=== PATIENT | female | born 1965 | race Caucasian/White ===

== ENCOUNTER 2016-03-14 05:35 | Observation (INO) | payer OTHER ==
[2016-03-14] MEDS ORDERED: Sodium Chloride 0.9% 1000 ML 1,000 ML IV STA (06:04)
[2016-03-14] MEDS ORDERED: Zofran 4 MG/2 ML VIAL IV ONE ×2 (06:04→15:19)
[2016-03-14] MEDS ORDERED: PROTONIX 40 MG IV IV ONE ×2 (06:04→06:09)
[2016-03-14] MEDS ORDERED: Sodium Chloride 0.9% 1000 ML 1,000 ML ONE (06:09)
[2016-03-14] MEDS ORDERED: Zofran 4 MG/2 ML VIAL ONE (06:09)
--- NOTE | 2016-03-14 06:13 | ERPHSYRPT ---
- History of Present Illness Historian: patient Exam Limitations: other Patient Subjective Stated Complaint: joe been having vomiting, diarrhea, and abd pain since yesterday. Triage Nursing Assessment: pt alert and oriented. answers qeustions approp. respirations nonlabored with lungs cta. pt ambulatory with steady gait noted. pt belching frequently. abd soft and nontender with hypo bowel sounds. pt states she hasnt been passing gas for days. Timing/Duration: today Activities at Onset: none Quality: sharpness Abdominal Pain Onset Location: epigastric, generalized abdomen Severity of Pain-Max: moderate Severity of Pain-Current: moderate Modifying Factors: Improves With: vomiting Associated Symptoms: diarrhea, vomiting Previous symptoms: same symptoms as today Hx Tetanus, Diphtheria Vaccination/Date Given: Yes (UP TO DATE) Hx Influenza Vaccination/Date Given: Yes Hx Pneumococcal Vaccination/Date Given: No Immunizations Up to Date: Yes <SHAKA BLACKWELL - Last Filed: 03/14/16 07:03> <GHADA HERNANDEZ - Last Filed: 03/14/16 08:02> - History of Present Illness Time Seen by Provider: 03/14/16 05:47 Physician History: PATIENT WITH A HISTORY OF HYPERTENSION,ABDOMINAL SURGERY FOR INTUSSUSCEPTION 10 YEARS COMPLAINS OF UPPER ABDOMINAL PAINS SINCE 8PM LAST NIGHT ASSOCIATED WITH EMESIS AND WATERY DIARRHEA SINCE 2AM. DENIES RADIATION OF PAIN, FEVER, OR URINARY SYMPTOMS. (SHAKA BLACKWELL) Allergies/Adverse Reactions: No Known Drug Allergies Allergy (Verified 02/07/16 21:21) Home Medications: Atorvastatin Calcium [Lipitor] 10 mg PO DAILY 07/27/15 [History] Citalopram Hydrobromide [Celexa] 20 mg PO DAILY 07/27/15 [History] Metoprolol Tartrate 25 mg [Lopressor 25MG Tab] 25 mg BID 07/27/15 [History ] Rizatriptan Benzoate [Maxalt] 5 mg PO UD 01/18/16 [History] PANTOPRAZOLE 40 mg Tablet [Protonix 40MG Tablet] 40 mg PO QAM 03/14/16 [ History] - Review of Systems Constitutional: No Fever, No Chills Eyes: No Symptoms Ears, Nose, & Throat: No Symptoms Respiratory: No Symptoms, No Cough, No Dyspnea Cardiac: No Symptoms, No Chest Pain, No Edema, No Syncope Abdominal/Gastrointestinal: Abdominal Pain, Nausea, Vomiting, No Diarrhea Genitourinary Symptoms: No Symptoms, No Dysuria Musculoskeletal: No Symptoms, No Back Pain, No Neck Pain Skin: No Symptoms, No Rash Neurological: No Dizziness, No Focal Weakness, No Sensory Changes Psychological: No Symptoms Endocrine: No Symptoms All Other Systems: Reviewed and Negative <DEESHAKA Last Filed: 03/14/16 07:03> - Past Medical History Pertinent Past Medical History: Yes Cardiac History: Angina, High Cholesterol, Hypertension Musculoskeletal History: Other GI Medical History: Other Psycho-Social History: Depression Other Medical History: knee, intussusception approx 10 yrs ago - Past Surgical History Past Surgical History: Yes Other Surgical History: carpal tunnel PER RIGHT WRIST - Social History Smoking Status: Never smoker Exposure to second hand smoke: No Alcohol Use: Socially Drug Use: none Patient Lives Alone: No Significant Family History: no pertinent family hx - Female History Hx Now: No <DEESHAKA Filed: 03/14/16 07:03> - Physical Exam General Appearance: mild distress Eye Exam: PERRL/EOMI, eyes nml inspection Ears, Nose, Throat Exam: normal ENT inspection, pharynx normal, moist mucous membranes Neck Exam: normal inspection, non-tender, supple, full range of motion Respiratory Exam: normal breath sounds, lungs clear, No respiratory distress Cardiovascular Exam: regular rate/rhythm, normal heart sounds Gastrointestinal/Abdomen Exam: soft, normal bowel sounds, No tenderness ( EPIGASTRIC AND RIGHT UPPER QUADRANT), No mass Back Exam: normal inspection, normal range of motion, No CVA tenderness, No vertebral tenderness Extremity Exam: normal inspection, normal range of motion, pelvis stable Neurologic Exam: alert, oriented x 3, cooperative, normal mood/affect, nml cerebellar function, sensation nml, No motor deficits Skin Exam: normal color, warm, dry SpO2 Interpretation: normal SpO2: 96 Oxygen Delivery: Room Air <DEESHAKA - Filed: 03/14/16 07:03> - Course Nursing assessment & vital signs reviewed: Yes - CT Exams Abdomen/Pelvis CT Interpretation: Discussed w/radiologist, Tele-radiologist Report, appendicitis <GHADA HERNANDEZ - Last Filed: 03/14/16 08:02> Ordered Tests: Active Orders 24 hr Category Date Time Status Clean Catch Urine Specimen STAT Care 03/14/16 06:04 Active IV Insertion STAT Care 03/14/16 06:04 Active ABDOMEN AND PELVIS W CONTRAST [CT] Stat Exams 03/14/16 06:05 Taken AMYLASE Stat Lab 03/14/16 05:40 Completed BLOOD CULTURE Stat Lab 03/14/16 06:15 Received CBC W DIFF Stat Lab 03/14/16 05:40 Completed CMP Stat Lab 03/14/16 05:40 Completed LIPASE Stat Lab 03/14/16 05:40 Completed UA Stat Lab 03/14/16 06:04 Ordered Transfer Order Routine Transfer 03/14/16 07:57 Ordered Medication Summary Generic Name Dose Route Start Last Admin Trade Name Freq PRN Reason Stop Dose Admin Sodium Chloride 1,000 mls @ 500 mls/hr 03/14/16 06:04 03/14/16 06:11 Sodium Chloride 0.9% 1000 Ml IV 03/14/16 08:03 500 mls/hr .Q2H STA Administration Cefoxitin Sodium 50 mls @ 100 mls/hr 03/14/16 12:00 03/14/16 07:55 Mefoxin 1 Gm/ D5w 50 Ml IV 04/13/16 11:59 100 mls/hr Q6HT ANGELINA Administration Discontinued Medications Generic Name Dose Route Start Last Admin Trade Name Freq PRN Reason Stop Dose Admin Hydromorphone HCl 1 mg 03/14/16 06:16 03/14/16 06:22 Hydromorphone 1 Mg/Ml Ampule IV 03/14/16 06:17 1 mg STAT ONE Administration Hydromorphone HCl Confirm 03/14/16 06:21 Hydromorphone 1 Mg/Ml Ampule Administered 03/14/16 06:22 Dose 1 mg .ROUTE .STK-MED ONE Hydromorphone HCl 1 mg 03/14/16 06:51 03/14/16 06:56 Hydromorphone 1 Mg/Ml Ampule IV 03/14/16 06:52 1 mg STAT ONE Administration Hydromorphone HCl Confirm 03/14/16 06:56 Hydromorphone 1 Mg/Ml Ampule Administered 03/14/16 06:57 Dose 1 mg .ROUTE .STK-MED ONE Sodium Chloride Confirm 03/14/16 06:09 Sodium Chloride 0.9% 1000 Ml Administered 03/14/16 06:10 Dose 1,000 mls @ ud .ROUTE .STK-MED ONE Ondansetron HCl 4 mg 03/14/16 06:04 03/14/16 06:11 Zofran 4 Mg/2 Ml Vial IV 03/14/16 06:05 4 mg STAT ONE Administration Ondansetron HCl Confirm 03/14/16 06:09 Zofran 4 Mg/2 Ml Vial Administered 03/14/16 06:10 Dose 4 mg .ROUTE .STK-MED ONE Pantoprazole Sodium 40 mg 03/14/16 06:04 03/14/16 06:11 Protonix 40 Mg Iv IV 03/14/16 06:05 40 mg STAT ONE Administration Pantoprazole Sodium Confirm 03/14/16 06:09 Protonix 40 Mg Iv Administered 03/14/16 06:10 Dose 40 mg IV .STK-MED ONE Lab/Rad Data: Laboratory Result Diagrams 03/14/16 05:40 03/14/16 05:40 Laboratory Results 03/14/16 03/14/16 Range/Units 05:40 05:40 WBC 12.3 H (4.0-10.5) K/mm3 RBC 4.14 (4.1-5.4) M/mm3 Hgb 12.4 (12.0-16.0) gm/dl Hct 39.5 (35-47) % MCV 95.4 (78-100) fl MCH 30.0 (26-32) pg MCHC 31.4 L (32-36) g/dl RDW 13.2 (11.5-14.0) % Plt Count 329 (150-450) K/mm3 MPV 10.0 H (6-9.5) fl Gran % 74.6 H (36.0-66.0) % Lymphocytes % 16.6 L (24.0-44.0) % Monocytes % 8.2 (0.0-12.0) % Eosinophils % 0.5 (0.00-5.0) % Basophils % 0.1 (0.0-0.4) % Basophils # 0.01 (0-0.4) Sodium 143 (136-145) mEq/L Potassium 3.7 (3.5-5.1) mEq/L Chloride 104 (98-107) mEq/L Carbon Dioxide 31.5 (21-32) mEq/L Anion Gap 11.4 (5-15) MEQ/L BUN 10 (9-20) mg/dL Creatinine 0.75 (0.55-1.30) mg/dl Estimated GFR > 60 ML/MIN Glucose 120 H (70-110) MG/DL Calcium 9.1 (8.5-10.1) mg/dL Total Bilirubin 0.4 (0.2-1.0) mg/dL AST 16 (15-37) U/L ALT 38 (12-78) U/L Alkaline Phosphatase 112 (46-116) U/L Serum Total Protein 7.7 (6.4-8.2) gm/dL Albumin 3.9 (3.4-5.0) g/dL Amylase 45 (25-115) U/L Lipase 183 (73-393) U/L <SHAKA BLACKWELL - Last Filed: 03/14/16 07:03> - Progress Progress: improved, re-examined Discussed with .: Leo (consulted and accepted patietn for admission) Will see patient in: hospital (full admit) Counseled pt/family regarding: lab results, diagnosis, need for follow-up, rad results <GHADA HERNANDEZ - Last Filed: 03/14/16 08:02> - Progress Progress Note: 03/14/16 06:12 PATIENT GIVEN IV FLUIDS NORMAL SALINE 500ML/HR X 2, ZOFRAN 4MG, PROTONIX 40MG IV , AND DILAUDID 1MG IV X 2 03/14/16 06:41 03/14/16 07:03- PATIENT CARE ENDORSED TO DR HERNANDEZ AT 0703 FOR DEPOSITION (SHAKA BLACKWELL) 03/14/16 07:34 Received cahnge over from Dr Blackwell. Patient in CT. Upon return rechecked patient and reviewed labs. Pain and N&V resolved. VS ok. REsting comfortably. Contacted by Radiologist and informed the patient has acute appendicitis. Notified patient and will consult Dr Davila or group for consult and surgery. 03/14/16 07:47 Dr Davila consulted and accepted the patient for admission. Will given antibiotics; make npo and admit to floor pending surgery. Patient notified. ( GHADA HERNANDEZ) <SHAKA BLACKWELL - Last Filed: 03/14/16 07:03> - Departure Time of Disposition: 07:48 Departure Disposition: In-patient Admission Critical Care Time: No <GHADA HERNANDEZ - Last Filed: 03/14/16 08:02> - Departure Clinical Impression: Acute appendicitis Condition: Serious Referrals: FROILAN SANDOVAL [Primary Care Provider] - Instructions: Abdominal Pain-Adult
[2016-03-14] MEDS ORDERED: Hydromorphone 1 mg/ml Ampule IV ONE ×2 (06:16→06:51)
[2016-03-14] MEDS ORDERED: Hydromorphone 1 mg/ml Ampule ONE ×2 (06:21→06:56)
[2016-03-14 06:29] LABS: BASOPHIL % 0.1 % (0.0-0.4); Eosinophil % 0.5 % (0.00-5.0); Granulocytes % 74.6 % (36.0-66.0); Lymphocytes % 16.6 % (24.0-44.0); Mean Cell Volume 95.4 fl (78-100); Monocytes % 8.2 % (0.0-12.0); Platelet Count 329 K/mm3 (150-450); Red Blood Count 4.14 M/mm3 (4.1-5.4); Red Cell Distribution Width 13.2 % (11.5-14.0); White Blood Count 12.3 K/mm3 (4.0-10.5)
[2016-03-14 06:44] LABS: ALBUMIN 3.9 g/dL (3.4-5.0); ALKALINE PHOSPHATASE 112 U/L (46-116); ANION GAP 11.4 MEQ/L (5-15); BILIRUBIN,TOTAL 0.4 mg/dL (0.2-1.0); BLOOD UREA NITROGEN 10 mg/dL (9-20); CHLORIDE 104 mEq/L (98-107); Carbon Dioxide 31.5 mEq/L (21-32); Glucose 120 MG/DL (70-110); LIPASE 183 U/L (73-393); Potassium 3.7 mEq/L (3.5-5.1); SGOT/AST 16 U/L (15-37); SGPT/ALT 38 U/L (12-78); SODIUM 143 mEq/L (136-145); Total Protein 7.7 gm/dL (6.4-8.2)
[2016-03-14] MEDS: MEFOXIN 1 Gm/ D5W 50 Ml** 50 ML IV SCH ×3 (07:55→18:39)
[2016-03-14] MEDS ORDERED: Zofran 4 MG/2 ML VIAL IV PRN (08:40)
[2016-03-14] MEDS ORDERED: Sodium Chloride 0.9% 1000 ML 1,000 ML IV SCH (08:40)
[2016-03-14] MEDS ORDERED: PHARMACY DOSING REQUIRED: DILAUDID PCA IV STA (08:40)
[2016-03-14] MEDS ORDERED: DILAUDID 1 MG/1ML PCA IV PRN (08:53)
--- NOTE | 2016-03-14 08:54 | XRAY ---
Indication: Abdominal pain, nausea, vomiting, diarrhea. Multiple contiguous axial images obtained through the abdomen and pelvis using 80 cc Isovue 370 contrast only. Comparison: September 11, 2015. Lung bases again demonstrates bibasilar dependent atelectasis. Heart is not enlarged. Retrocecal appendix is now prominent up to 13 mm diameter with wall thickening/enhancement and periappendiceal stranding favoring acute appendicitis. Tiny right colic fluid but no walled off fluid collection or free air. Noncontrasted stomach and bowel loops appear nonobstructed. There are mild fluid distended small and large bowel loops with fluid leveling presumed reactive. Hepatic lesions demonstrates enhancement characteristics favoring hemangioma. Remaining gallbladder, pancreas, spleen, adrenal glands, kidneys, ureters, bladder, and uterus appear unremarkable. Again mild aortoiliac calcifications. No AAA or pathologic retroperitoneal lymphadenopathy. Osseous structures intact. Impression: 1. New CT findings for acute appendicitis as detailed. No perforation or abscess. 2. Fluid distended bowel loops with fluid leveling probably reactive ileus. 3. Incidental hepatic hemangiomas. Comment: Telephone report was given to Dr. Kitchen in the ER at 0731 hrs. on March 14, 2016. CT DI 25.88
[2016-03-14] MEDS ORDERED: Sensorcaine 0.25% 10 ML ONE (09:02)
[2016-03-14] MEDS ORDERED: Lactated Ringers 1,000 ML IV ONE ×3 (09:02→14:15)
[2016-03-14] MEDS ORDERED: MEFOXIN 2 GM PREMIX** 50 ML IV SCH (10:00)
[2016-03-14] MEDS ORDERED: Ativan 0.5 MG PO ONE (12:17)
[2016-03-14] MEDS ORDERED: Lactated Ringers 1,000 ML IV SCH (13:00)
[2016-03-14] MEDS ORDERED: SUBLIMAZE 100 MCG/2 ML ONE (14:47)
[2016-03-14] MEDS ORDERED: DILAUDID 2 MG INJECTION ONE (14:57)
[2016-03-14] MEDS ORDERED: Quelicin Fliptop 200 MG/10 ML IV ONE (15:19)
[2016-03-14] MEDS ORDERED: DIPRIVAN 200 MG/20 ML IV ONE (15:19)
[2016-03-14] MEDS ORDERED: TORAdol 30 mg Injection IV ONE (15:19)
[2016-03-14] MEDS ORDERED: BRIDION 200MG/2ML IV ONE (15:19)
[2016-03-14] MEDS ORDERED: DILAUDID 2 MG INJECTION IV ONE (15:19)
[2016-03-14] MEDS ORDERED: Decadron 4 MG INJ IV ONE (15:19)
[2016-03-14] MEDS ORDERED: SUBLIMAZE 100 MCG/2 ML IV ONE (15:19)
[2016-03-14] MEDS ORDERED: Zemuron 100 MG/10 ML IV ONE (15:19)
[2016-03-14] MEDS ORDERED: FEVERALL 650 MG RC PRN (16:00)
[2016-03-14] MEDS ORDERED: TYLENOL 325 MG PO PRN (16:00)
[2016-03-14] MEDS: Dextrose 5%-Lr IV Solution 1000 ML 1,000 ML IV SCH (20:59)
[2016-03-14] MEDS ORDERED: Ambien 5 MG Tablet PO PRN (21:09)
[2016-03-14] MEDS: Lopressor 25MG Tab PO SCH (21:24)
[2016-03-14] MEDS ORDERED: AMPHET ASP PO SCH (22:00)
[2016-03-14] MEDS ORDERED: Zocor 10MG PO SCH (22:00)
[2016-03-14] MEDS ORDERED: AMPHET PO SCH (22:00)
[2016-03-14] MEDS ORDERED: D AMPHET PO SCH (22:00)
[2016-03-15] MEDS: MEFOXIN 1 Gm/ D5W 50 Ml** 50 ML IV SCH ×3 (00:07→11:05)
[2016-03-15 05:43] LABS: Mean Cell Volume 97.3 fl (78-100); Mean Platelet Volume 9.8 fl (6-9.5); Platelet Count 246 K/mm3 (150-450); Red Blood Count 3.38 M/mm3 (4.1-5.4); White Blood Count 14.2 K/mm3 (4.0-10.5)
[2016-03-15 05:47] LABS: Mean Corpuscular Hemoglobin 29.8 pg (26-32)
--- NOTE | 2016-03-15 08:24 | OP ---
SURGERY DATE: 03/14/16 SURGERY TIME: 1244 PREOPERATIVE DIAGNOSIS: 1. ACUTE APPENDICITIS. POSTOPERATIVE DIAGNOSIS: 1. ACUTE APPENDICITIS. PROCEDURE: 1. Laparoscopic appendectomy. SURGEON: Jorge Davila M.D. ANESTHESIA: General. COMPLICATIONS: None. CONDITION: Stable. INDICATION: 50 y/o with acute appendicitis. OPERATIVE PROCEDURE: Taken to surgery. General anesthetic. Routine prep and drape. Veress needle inserted. Opened to a pressure of 1. Insufflated to a pressure of 14. #12 trocar introduced. No blood under trocar introduction site. Two 5s laterally. Good visualization. Appendix was retrocecal. It was wrapped up and cocooned like a shrimp in a bun. The anterior surface was visible. This allowed for dissection on the more lateral and posterior surface. The base was clearly taken with 2.5 vascular cartridge. The mesoappendix lifted up and taken with 2.5 vascular cartridge. Appendix placed in a condom bag and removed. Field was slightly oozy. The mesoappendix was picked up a second time and stapled a second time and this certainly dried up the field. A 10 SHANAE was placed and secured. The hole closure device was used at the 12 port and CO2 was exsufflated. Findings discussed with the family in the waiting room.
[2016-03-15] MEDS: Lopressor 25MG Tab PO SCH (08:46)
[2016-03-15] MEDS: Dextrose 5%-Lr IV Solution 1000 ML 1,000 ML IV SCH (09:32)
[2016-03-15] MEDS: NORCO 5/325 MG PO PRN ×2 (09:42→14:31)
[2016-03-15] MEDS ORDERED: MEDICATION INTERVENTION MC SCH ×2 (10:00)
[2016-03-15] MEDS ORDERED: ceLEXa 20 MG PO SCH (10:00)
[2016-03-15] MEDS ORDERED: Protonix 40MG Tablet PO SCH (10:00)
[2016-03-15] MEDS ORDERED: ENOXAPARIN SODIUM SQ SCH (10:00)
[2016-03-15 11:36] VITALS: BP 117/59
[2016-03-15 13:06] VITALS: PULSE 84; O2SAT 93
== END 2016-03-15 15:20 | disposition home or self-care (01) ==
LOC: ED 05:35 → MED SURG 08:30 → INTOOBSV 08:30
PROVIDERS: ADMIT Surgery; ATTEND Surgery
PROC: 0DTJ4ZZ Resection of Appendix, Percutaneous Endoscopic Approach (ICD-10-PCS; principal; 2016-03-14)
DX: K35.80 Unspecified acute appendicitis (principal); I10 Essential (primary) hypertension; F32.4 Major depressive disorder, single episode, in partial remission; Z79.899 Other long term (current) drug therapy; E78.00 Pure hypercholesterolemia, unspecified
CPT/HCPCS: 00840; 36000; 36415; 74177; 80053; 82150; 83690; 85025; 85027; 87040; 94760; 96360; 96365; 96374; 99140; 99284; 99285; G0378; J0330; J0694; J1100; J1170; J1650; J1885; J2405; J2704; J3010

== ENCOUNTER 2016-03-17 09:38 | Emergency (ER) | payer OTHER, BC ==
[2016-03-17 09:48] VITALS: PULSE 92; O2SAT 96
--- NOTE | 2016-03-17 10:04 | ERPHSYRPT ---
- History of Present Illness Time Seen by Provider: 03/17/16 10:01 Historian: patient Exam Limitations: no limitations Patient Subjective Stated Complaint: pt reports having appy morning- bowels have not moved since-reprots severe right side abd pain-attempted to drink maalox-vomited Triage Nursing Assessment: pt pale warm et dry-a & o x 3-bowel sounds hypoactive -resp nonlabored Physician History: pt reports having appy morning-bowels have not moved since-reprots severe right side abd pain-attempted to drink maalox-vomited Timing/Duration: yesterday Quality: aching, burning, cramping Abdominal Pain Onset Location: RLQ Pain Radiation: no radiation Severity of Pain-Max: severe Severity of Pain-Current: moderate Modifying Factors: Improves With: nothing Associated Symptoms: loss of appetite, nausea, vomiting Previous symptoms: recent hospitalization (for appendicectomy) Allergies/Adverse Reactions: No Known Drug Allergies Allergy (Verified 03/17/16 09:48) Home Medications: Atorvastatin Calcium [Lipitor] 10 mg PO DAILY 07/27/15 [History] Citalopram Hydrobromide [Celexa] 20 mg PO DAILY 07/27/15 [History] Metoprolol Tartrate 25 mg [Lopressor 25MG Tab] 25 mg BID 07/27/15 [History ] Rizatriptan Benzoate [Maxalt] 10 mg PO UD 01/18/16 [History] Amphet Asp/Amphet/D-Amphet [Amphetamine Salts 20 mg Tablet] 20 mg PO BID [History] PANTOPRAZOLE 40 mg Tablet [Protonix 40MG Tablet] 40 mg PO QAM 03/14/16 [ History] Hx Tetanus, Diphtheria Vaccination/Date Given: Yes (UP TO DATE) Hx Influenza Vaccination/Date Given: Yes Hx Pneumococcal Vaccination/Date Given: No Immunizations Up to Date: Yes - Review of Systems Constitutional: No Fever, No Chills Eyes: No Symptoms Ears, Nose, & Throat: No Symptoms Respiratory: No Cough, No Dyspnea Cardiac: No Chest Pain, No Edema, No Syncope Abdominal/Gastrointestinal: Abdominal Pain, Nausea, Vomiting, Constipation, No Diarrhea Genitourinary Symptoms: No Dysuria Musculoskeletal: No Back Pain, No Neck Pain Skin: No Rash Neurological: No Dizziness, No Focal Weakness, No Sensory Changes Psychological: No Symptoms Endocrine: No Symptoms All Other Systems: Reviewed and Negative - Past Medical History Pertinent Past Medical History: Yes Neurological History: Migraines Cardiac History: Angina, High Cholesterol, Hypertension Respiratory History: No Pertinent History Musculoskeletal History: Rheumatoid Arthritis, Other GI Medical History: Other History: No Pertinent History Psycho-Social History: Attention Deficit Disorder, Depression Other Medical History: knee, intussusception approx 10 yrs ago - Past Surgical History Past Surgical History: Yes Neuro Surgical History: No Pertinent History Gastrointestinal: Appendectomy Other Surgical History: carpal tunnel PER RIGHT WRIST - Social History Smoking Status: Former smoker Exposure to second hand smoke: No Alcohol Use: Socially Drug Use: none Patient Lives Alone: No Significant Family History: no pertinent family hx - Female History Hx Now: No - Nursing Vital Signs Nursing Vital Signs: Initial Vital Signs Temperature 97.7 F Temperature Source Oral Pulse Rate 92 Respiratory Rate 22 Pain Intensity 20 - Physical Exam General Appearance: no apparent distress, alert Eye Exam: PERRL/EOMI, eyes nml inspection Ears, Nose, Throat Exam: normal ENT inspection, pharynx normal, moist mucous membranes Neck Exam: normal inspection, non-tender, supple, full range of motion Respiratory Exam: normal breath sounds, lungs clear, No respiratory distress Cardiovascular Exam: regular rate/rhythm, normal heart sounds Gastrointestinal/Abdomen Exam: tenderness, distention, guarding (right lower quadrant), rebound (RLQ), No mass Pelvic Exam: not done Rectal Exam: deferred Back Exam: normal inspection, normal range of motion, No CVA tenderness, No vertebral tenderness Extremity Exam: normal inspection, normal range of motion, pelvis stable Neurologic Exam: alert, oriented x 3, cooperative, normal mood/affect, nml cerebellar function, sensation nml, No motor deficits Skin Exam: normal color, warm, dry SpO2: 96 Oxygen Delivery: Room Air - Course Nursing assessment & vital signs reviewed: Yes - CT Exams Abdomen/Pelvis CT Interpretation: Tele-radiologist Report Ordered Tests: Active Orders 24 hr Category Date Time Status IV Insertion STAT Care 03/17/16 10:19 Active ABDOMEN AND PELVIS W/0 CONTRAS [CT] Stat Exams 03/17/16 10:22 Taken AMYLASE Stat Lab 03/17/16 10:20 Completed CBC W DIFF Stat Lab 03/17/16 10:20 Completed CMP Stat Lab 03/17/16 10:20 Completed LIPASE Stat Lab 03/17/16 10:20 Completed Lactic Acid Urgent Lab 03/17/16 10:22 Completed Medication Summary Discontinued Medications Generic Name Dose Route Start Last Admin Trade Name Raquel PRN Reason Stop Dose Admin Sodium Chloride 1,000 mls @ 999 mls/hr 03/17/16 10:22 03/17/16 10:39 Sodium Chloride 0.9% 1000 Ml IV 03/17/16 11:22 999 mls/hr .Q1H1M STA Administration Sodium Chloride Confirm 03/17/16 10:32 Sodium Chloride 0.9% 1000 Ml Administered 03/17/16 10:33 Dose 1,000 mls @ ud .ROUTE .STK-MED ONE Morphine Sulfate 4 mg 03/17/16 10:22 03/17/16 10:39 Morphine Sulfate 4 Mg Inj IV 03/17/16 10:23 4 mg STAT ONE Administration Morphine Sulfate Confirm 03/17/16 10:32 Morphine Sulfate 4 Mg Inj Administered 03/17/16 10:33 Dose 4 mg .ROUTE .STK-MED ONE Lab/Rad Data: Laboratory Result Diagrams 03/17/16 10:20 03/17/16 10:20 Laboratory Results 03/17/16 03/17/16 03/17/16 Range/Units 10:22 10:20 10:20 WBC 9.0 (4.0-10.5) K/mm3 RBC 3.86 L (4.1-5.4) M/mm3 Hgb 11.7 L (12.0-16.0) gm/dl Hct 36.8 (35-47) % MCV 95.3 (78-100) fl MCH 30.3 (26-32) pg MCHC 31.8 L (32-36) g/dl RDW 13.0 (11.5-14.0) % Plt Count 318 (150-450) K/mm3 MPV 9.9 H (6-9.5) fl Gran % 72.0 H (36.0-66.0) % Lymphocytes % 18.5 L (24.0-44.0) % Monocytes % 7.6 (0.0-12.0) % Eosinophils % 1.8 (0.00-5.0) % Basophils % 0.1 (0.0-0.4) % Basophils # 0.01 (0-0.4) Sodium 142 (136-145) mEq/L Potassium 4.0 (3.5-5.1) mEq/L Chloride 100 (98-107) mEq/L Carbon Dioxide 31.7 (21-32) mEq/L Anion Gap 14.1 (5-15) MEQ/L BUN 7 L (9-20) mg/dL Creatinine 0.66 (0.55-1.30) mg/dl Estimated GFR > 60 ML/MIN Glucose 101 (70-110) MG/DL Lactic Acid 1.6 (0.4-2.0) Calcium 9.3 (8.5-10.1) mg/dL Total Bilirubin 0.6 (0.2-1.0) mg/dL AST 44 H (15-37) U/L ALT 30 (12-78) U/L Alkaline Phosphatase 114 (46-116) U/L Serum Total Protein 7.0 (6.4-8.2) gm/dL Albumin 3.3 L (3.4-5.0) g/dL Amylase 31 (25-115) U/L Lipase 107 (73-393) U/L - Progress Progress: unchanged Counseled pt/family regarding: lab results, diagnosis, need for follow-up, rad results - Departure Time of Disposition: 11:24 Departure Disposition: Home Clinical Impression: Paralytic ileus, S/P appendectomy Condition: Stable Critical Care Time: Yes Critical Care Time(excluding separately billable procedures): 30-74 minutes Referrals: FROILAN SANDOVAL [Primary Care Provider] - Additional Instructions: stay on clear liquid diet, follow up with your primary care physician in 1-2 days, if symptoms persist call your surgeon and/or come to ER. Prescriptions: Ondansetron [Zofran Odt] 4 mg PO Q6H #20 tab.meredis
[2016-03-17] MEDS ORDERED: MORPHINE SULFATE 4 MG INJ IV ONE (10:22)
[2016-03-17] MEDS ORDERED: Sodium Chloride 0.9% 1000 ML 1,000 ML IV STA (10:22)
[2016-03-17] MEDS ORDERED: MORPHINE SULFATE 4 MG INJ ONE (10:32)
[2016-03-17] MEDS ORDERED: Sodium Chloride 0.9% 1000 ML 1,000 ML ONE (10:32)
[2016-03-17 10:39] LABS: BASOPHIL % 0.1 % (0.0-0.4); Eosinophil % 1.8 % (0.00-5.0); Lymphocytes % 18.5 % (24.0-44.0); Mean Cell Volume 95.3 fl (78-100); Mean Corpuscular Hemoglobin 30.3 pg (26-32); Mean Platelet Volume 9.9 fl (6-9.5); Monocytes % 7.6 % (0.0-12.0); Platelet Count 318 K/mm3 (150-450); Red Blood Count 3.86 M/mm3 (4.1-5.4)
[2016-03-17 10:51] LABS: ALBUMIN 3.3 g/dL (3.4-5.0); ALKALINE PHOSPHATASE 114 U/L (46-116); ANION GAP 14.1 MEQ/L (5-15); BILIRUBIN,TOTAL 0.6 mg/dL (0.2-1.0); BLOOD UREA NITROGEN 7 mg/dL (9-20); CHLORIDE 100 mEq/L (98-107); Carbon Dioxide 31.7 mEq/L (21-32); Glucose 101 MG/DL (70-110); LIPASE 107 U/L (73-393); SGOT/AST 44 U/L (15-37); SGPT/ALT 30 U/L (12-78); SODIUM 142 mEq/L (136-145)
[2016-03-17 11:36] VITALS: BP 151/85
--- NOTE | 2016-03-17 19:58 | XRAY ---
Indication: Right upper quadrant pain. Status post appendectomy. Multiple contiguous axial images obtained through the abdomen and pelvis without contrast as ordered. Comparison: March 14, 2016. Lung bases again demonstrates bibasilar dependent atelectasis with now tiny right effusion. Heart is not enlarged. Noncontrasted stomach and bowel loops appear nonobstructed. Interval appendectomy. There are now tiny intra-abdominal air bubbles presumed related to recent surgery. No suspicious free fluid or walled off fluid collection. Stable hepatic hemangioma. Remaining liver, gallbladder, pancreas, spleen, adrenal glands, kidneys, ureters, bladder, and uterus appear unremarkable for noncontrast exam. Stable mild aortoiliac calcifications. Impression: Status post appendectomy. Tiny intra-abdominal free air presumed related to recent surgery. No suspicious free fluid or walled off fluid collection. Stable hepatic hemangioma. CTDI 23.34
== END 2016-03-17 11:40 | disposition home or self-care (01) ==
LOC: ED 09:38
DX: K56.0 Paralytic ileus (principal); Z98.890 Other specified postprocedural states; R11.2 Nausea with vomiting, unspecified; K59.00 Constipation, unspecified; R10.9 Unspecified abdominal pain; E78.00 Pure hypercholesterolemia, unspecified; I10 Essential (primary) hypertension
CPT/HCPCS: 36000; 36415; 74176; 80053; 82150; 83605; 83690; 85025; 96360; 96361; 96374; 99283; 99284; J2270

== ENCOUNTER 2016-05-26 13:36 | Emergency (ER) | payer BC, OTHER ==
--- NOTE | 2016-05-26 14:00 | ERPHSYRPT ---
- History of Present Illness Time Seen by Provider: 05/26/16 13:56 Source: patient Exam Limitations: no limitations Patient Subjective Stated Complaint: PT REPORTS HEADACHE BEGINNING ON FRIDAY- HAS TAKEN HOME MEDS FOR MIGRAINE HEADACHES WITH NO RELIEF-VOMITED X 1 TODAY- DENIES NUMBNESS OR TINLGING Triage Nursing Assessment: PT PALE WARM ET DRY-A & O X 3-PUPILS RESPONSIVE- MOVING ALL EXTREMITIES WITH EASE-RESP NONLABORED Physician History: Pt. with hx. of Migraine Headache, who develop headaches for past 2 to 3 days. Frontal throbbing headache with photophobia, along with nausea/vomiting. No neuro symptioms, no blurred vision or ataxia. States tried Maxalt and Imitrex with minimal relief. States headaches similar to previous "migraine headaches. " Timing/Duration: yesterday Quality: throbbing Head Pain Location: frontal Severity of Pain-Max: moderate Severity of Pain-Current: moderate Recent Head Trauma: no recent headache/trauma Modifying Factors: Improves With: exposure to light (worsens) Associated Symptoms: nausea/vomiting, sensitive to light, No confusion, No dizziness, No light-headedness, No nasal congestion, No nasal drainage, No sinus infection Previous symptoms: other (similar to previous migraines) Allergies/Adverse Reactions: No Known Drug Allergies Allergy (Verified 05/26/16 13:44) Home Medications: Atorvastatin Calcium [Lipitor] 10 mg PO DAILY 07/27/15 [History] Citalopram Hydrobromide [Celexa] 20 mg PO DAILY 07/27/15 [History] Metoprolol Tartrate 25 mg [Lopressor 25MG Tab] 25 mg BID 07/27/15 [History ] Rizatriptan Benzoate [Maxalt] 10 mg PO UD 01/18/16 [History] PANTOPRAZOLE 40 mg Tablet [Protonix 40MG Tablet] 40 mg PO QAM 03/14/16 [ History] Dextroamphetamine/Amphetamine [Adderall 20 mg Tablet] 20 mg PO BID 05/26/16 [ History] Hx Tetanus, Diphtheria Vaccination/Date Given: Yes Hx Influenza Vaccination/Date Given: Yes Hx Pneumococcal Vaccination/Date Given: No Immunizations Up to Date: Yes - Review of Systems Constitutional: No Fever, No Chills Eyes: No Symptoms Ears, Nose, & Throat: No Symptoms Respiratory: No Cough, No Dyspnea Cardiac: No Chest Pain, No Edema, No Syncope Abdominal/Gastrointestinal: No Abdominal Pain, No Nausea, No Vomiting, No Diarrhea Genitourinary Symptoms: No Dysuria Musculoskeletal: No Back Pain, No Neck Pain Skin: No Rash Neurological: No Dizziness, No Focal Weakness, No Sensory Changes Psychological: No Symptoms Endocrine: No Symptoms All Other Systems: Reviewed and Negative - Past Medical History Pertinent Past Medical History: Yes Neurological History: Migraines Cardiac History: Angina, High Cholesterol, Hypertension Respiratory History: No Pertinent History Musculoskeletal History: Rheumatoid Arthritis, Other GI Medical History: Other History: No Pertinent History Psycho-Social History: Attention Deficit Disorder, Depression Other Medical History: knee, intussusception approx 10 yrs ago - Past Surgical History Past Surgical History: Yes Neuro Surgical History: No Pertinent History Gastrointestinal: Appendectomy Other Surgical History: carpal tunnel PER RIGHT WRIST - Social History Smoking Status: Former smoker Exposure to second hand smoke: No Alcohol Use: Socially Drug Use: none Patient Lives Alone: No Significant Family History: no pertinent family hx - Female History Hx Now: No - Nursing Vital Signs Nursing Vital Signs: Initial Vital Signs Temperature 98.1 F Temperature Source Oral Pulse Rate 71 Respiratory Rate 16 Blood Pressure [Right Arm] 129/79 Pain Intensity 4 - Physical Exam SpO2: 99 Oxygen Delivery: Room Air - Course Nursing assessment & vital signs reviewed: Yes Ordered Tests: Active Orders 24 hr Category Date Time Status IV Insertion STAT Care 05/26/16 14:03 Active Medication Summary Discontinued Medications Generic Name Dose Route Start Last Admin Trade Name Freq PRN Reason Stop Dose Admin Diphenhydramine HCl 25 mg 05/26/16 14:03 05/26/16 14:13 Benadryl 50 Mg/Ml IV 05/26/16 14:04 25 mg STAT ONE Administration Diphenhydramine HCl Confirm 05/26/16 14:09 Benadryl 50 Mg/Ml Administered 05/26/16 14:10 Dose 50 mg .ROUTE .STK-MED ONE Hydromorphone HCl 1 mg 05/26/16 15:01 05/26/16 15:05 Hydromorphone 1 Mg/Ml Ampule IV 05/26/16 15:02 1 mg STAT ONE Administration Hydromorphone HCl Confirm 05/26/16 15:04 Hydromorphone 1 Mg/Ml Ampule Administered 05/26/16 15:05 Dose 1 mg .ROUTE .STK-MED ONE Ketorolac Tromethamine 30 mg 05/26/16 14:03 05/26/16 14:11 Toradol 30 Mg Injection IV 05/26/16 14:04 30 mg STAT ONE Administration Ketorolac Tromethamine Confirm 05/26/16 14:09 Toradol 30 Mg Injection Administered 05/26/16 14:10 Dose 30 mg .ROUTE .STK-MED ONE Promethazine HCl 12.5 mg 05/26/16 14:03 05/26/16 14:12 Phenergan 25 Mg Inj IV 05/26/16 14:04 12.5 mg STAT ONE Administration Promethazine HCl Confirm 05/26/16 14:09 Phenergan 25 Mg Inj Administered 05/26/16 14:10 Dose 25 mg .ROUTE .STK-MED ONE - Progress Progress: improved Progress Note: 05/26/16 15:40 Pt. given Toradol, Phenergan and Benadryl with minimal relief of her symptoms. Pt. then was given Dilaudid that improved her headache significantly Counseled pt/family regarding: diagnosis - Departure Time of Disposition: 15:41 Departure Disposition: Home Clinical Impression: Acute headache Condition: Stable Critical Care Time: No Instructions: Headache Additional Instructions: RX: Compazine Bedrest, decrease tactile, visual or auditory stimulation Return for worse headache, vomiting, numbness, weakness or any concerning symptoms. Prescriptions: Prochlorperazine Maleate 10 mg [Compazine 10 mg] 10 mg PO Q6-8HPRN PRN #10 tablet PRN Reason: Vomiting
[2016-05-26] MEDS ORDERED: TORAdol 30 mg Injection IV ONE (14:03)
[2016-05-26] MEDS ORDERED: Phenergan 25 MG INJ IV ONE (14:03)
[2016-05-26] MEDS ORDERED: BENADRYL 50 MG/ML IV ONE (14:03)
[2016-05-26] MEDS ORDERED: BENADRYL 50 MG/ML ONE (14:09)
[2016-05-26] MEDS ORDERED: TORAdol 30 mg Injection ONE (14:09)
[2016-05-26] MEDS ORDERED: Phenergan 25 MG INJ ONE (14:09)
[2016-05-26] MEDS ORDERED: Hydromorphone 1 mg/ml Ampule IV ONE (15:01)
[2016-05-26] MEDS ORDERED: Hydromorphone 1 mg/ml Ampule ONE (15:04)
[2016-05-26 15:36] VITALS: BP 129/79; PULSE 71
[2016-05-26 15:45] VITALS: O2SAT 99
== END 2016-05-26 15:51 | disposition home or self-care (01) ==
LOC: ED 13:36
DX: R51 Headache (principal)
CPT/HCPCS: 36000; 96374; 96375; 96376; 99284; J1170; J1200; J1885; J2550

== ENCOUNTER 2017-03-21 10:45 | Emergency (ER) | payer BC, OTHER ==
[2017-03-21] MEDS ORDERED: Sodium Chloride 0.9% 1000 ML 1,000 ML IV STA (11:23)
[2017-03-21] MEDS ORDERED: MORPHINE SULFATE 4 MG INJ IV ONE ×2 (11:23→12:02)
--- NOTE | 2017-03-21 11:23 | ERPHSYRPT ---
- History of Present Illness Time Seen by Provider: 03/21/17 11:09 Historian: patient Exam Limitations: no limitations Patient Subjective Stated Complaint: PT REPROTS SEVER ABD PAIN-DIARRHEA ET VOMITING-PT NOTED A LITTLE BLOOD IN VOMIT Triage Nursing Assessment: PT PINK WARM ET [id number] TENDER TO PALP-RESP NONLABORED Physician History: This is a 51-year-old white female with history of migraines, hyperlipidemia, angina, high blood pressure, attention deficit disorder, depression. She arrives with complaint of pain in the right upper quadrant the nausea diarrhea vomiting symptoms for 2-3 days. She states she seen some blood in her vomit. Past medical history includes angina, hyperlipidemia, high blood pressure,, attention deficit disorder, depression, knee surgery patient with intussusception about 10 years ago past surgical history includes appendectomy, carpal tunnel, left wrist. Timing/Duration: day(s) (3 days) Activities at Onset: none Quality: cramping Abdominal Pain Onset Location: RUQ Pain Radiation: no radiation Severity of Pain-Max: moderate Severity of Pain-Current: moderate Modifying Factors: Improves With: nothing Associated Symptoms: diarrhea, nausea, vomiting, No back, No chest pain, No diaphoresis, No fever/chills, No fatigue, No headache, No heartburn, No loss of appetite, No neck pain, No rash, No shortness of breath, No syncope Allergies/Adverse Reactions: No Known Drug Allergies Allergy (Verified 03/21/17 11:08) Home Medications: Citalopram Hydrobromide [Celexa] 20 mg PO DAILY 07/27/15 [History] Metoprolol Tartrate 25 mg [Lopressor 25MG Tab] 25 mg BID 07/27/15 [History ] Hx Tetanus, Diphtheria Vaccination/Date Given: Yes Hx Influenza Vaccination/Date Given: Yes Hx Pneumococcal Vaccination/Date Given: No Immunizations Up to Date: Yes - Review of Systems Constitutional: No Fever, No Chills Eyes: No Symptoms Ears, Nose, & Throat: No Symptoms Respiratory: No Cough, No Dyspnea Cardiac: No Chest Pain, No Edema, No Syncope Abdominal/Gastrointestinal: Abdominal Pain, Nausea, Vomiting, Diarrhea, Hematemesis (patient states she seen some blood in her vomit recently ), No Constipation, No Hematochezia, No Melena, No Dysphagia, No Appetite Changes Genitourinary Symptoms: No Symptoms, No Dysuria Musculoskeletal: No Back Pain, No Neck Pain Skin: No Rash Neurological: No Dizziness, No Focal Weakness, No Sensory Changes Psychological: No Symptoms Endocrine: No Symptoms All Other Systems: Reviewed and Negative - Past Medical History Pertinent Past Medical History: Yes Neurological History: Migraines Cardiac History: Angina, High Cholesterol, Hypertension Respiratory History: No Pertinent History Musculoskeletal History: Rheumatoid Arthritis, Other GI Medical History: Other History: No Pertinent History Psycho-Social History: Attention Deficit Disorder, Depression Other Medical History: knee, intussusception approx 10 yrs ago - Past Surgical History Past Surgical History: Yes Neuro Surgical History: No Pertinent History Gastrointestinal: Appendectomy Other Surgical History: carpal tunnel PER RIGHT WRIST - Social History Smoking Status: Former smoker Exposure to second hand smoke: No Alcohol Use: Socially Drug Use: none Patient Lives Alone: No Significant Family History: no pertinent family hx - Female History Hx Now: No - Nursing Vital Signs Nursing Vital Signs: Initial Vital Signs Temperature 98.9 F 03/21/17 11:05 Pulse Rate 76 03/21/17 11:05 Respiratory Rate 20 03/21/17 11:05 Blood Pressure 170/100 03/21/17 11:05 O2 Sat by Pulse Oximetry 100 03/21/17 11:05 Pain Scale Pain Intensity 8 - Physical Exam General Appearance: mild distress Eye Exam: PERRL/EOMI, eyes nml inspection Ears, Nose, Throat Exam: normal ENT inspection, pharynx normal, moist mucous membranes Neck Exam: normal inspection, non-tender, supple, full range of motion Respiratory Exam: normal breath sounds, lungs clear, No respiratory distress Cardiovascular Exam: regular rate/rhythm, normal heart sounds Gastrointestinal/Abdomen Exam: soft, normal bowel sounds (is), tenderness ( right upper quadrant tenderness) Back Exam: normal inspection, normal range of motion, No CVA tenderness, No vertebral tenderness Extremity Exam: normal inspection, normal range of motion, pelvis stable Neurologic Exam: alert, oriented x 3, cooperative, associate director of nursing II-XII nml as tested, normal mood/affect, nml cerebellar function, sensation nml, No motor deficits Skin Exam: normal color, warm, dry SpO2 Interpretation: normal (100%) SpO2: 100 Oxygen Delivery: Room Air - Course Nursing assessment & vital signs reviewed: Yes - CT Exams Abdomen/Pelvis CT Interpretation: Discussed w/radiologist (CT of the abdomen and pelvis: Stable hepatic hemangioma. and right renal cyst. No new abdominal or pelvic abnormalities.) Ordered Tests: Active Orders 24 hr Category Date Time Status IV Insertion STAT Care 03/21/17 11:23 Active ABDOMEN AND PELVIS W CONTRAST [CT] Stat Exams 03/21/17 12:02 Completed AMYLASE Stat Lab 03/21/17 11:00 Completed CBC W DIFF Stat Lab 03/21/17 11:00 Completed CMP Stat Lab 03/21/17 11:00 Completed HCG QUALITATIVE,SERUM Stat Lab 03/21/17 11:00 Completed LIPASE Stat Lab 03/21/17 11:00 Completed Occult Blood,Stool Other Stat Lab 03/21/17 11:23 Uncollected UA W/ MICROSCOPIC Stat Lab 03/21/17 11:23 Completed Medication Summary Discontinued Medications Generic Name Dose Route Start Last Admin Trade Name Freq PRN Reason Stop Dose Admin Sodium Chloride 1,000 mls @ 999 mls/hr 03/21/17 11:23 03/21/17 11:37 Sodium Chloride 0.9% 1000 Ml IV 03/21/17 12:23 999 mls/hr .Q1H1M STA Administration Sodium Chloride Confirm 03/21/17 11:35 Sodium Chloride 0.9% 1000 Ml Administered 03/21/17 11:36 Dose 1,000 mls @ ud .ROUTE .STK-MED ONE Morphine Sulfate 4 mg 03/21/17 11:23 03/21/17 11:36 Morphine Sulfate 4 Mg Inj IV 03/21/17 11:24 4 mg STAT ONE Administration Morphine Sulfate Confirm 03/21/17 11:35 Morphine Sulfate 4 Mg Inj Administered 03/21/17 11:36 Dose 4 mg .ROUTE .STK-MED ONE Morphine Sulfate 4 mg 03/21/17 12:02 03/21/17 12:14 Morphine Sulfate 4 Mg Inj IV 03/21/17 12:03 4 mg STAT ONE Administration Morphine Sulfate Confirm 03/21/17 12:13 Morphine Sulfate 4 Mg Inj Administered 03/21/17 12:14 Dose 4 mg .ROUTE .STK-MED ONE Promethazine HCl 12.5 mg 03/21/17 11:24 03/21/17 11:36 Phenergan 25 Mg Inj IV 03/21/17 11:25 12.5 mg STAT ONE Administration Promethazine HCl Confirm 03/21/17 11:35 Phenergan 25 Mg Inj Administered 03/21/17 11:36 Dose 25 mg .ROUTE .STK-MED ONE Lab/Rad Data: Laboratory Result Diagrams 03/21/17 11:00 03/21/17 11:00 Laboratory Results 03/21/17 03/21/17 03/21/17 Range/Units 11:23 11:00 11:00 WBC (4.0-10.5) K/mm3 RBC (4.1-5.4) M/mm3 Hgb (12.0-16.0) gm/dl Hct (35-47) % MCV (78-100) fl MCH (26-32) pg MCHC (32-36) g/dl RDW (11.5-14.0) % Plt Count (150-450) K/mm3 MPV (6-9.5) fl Gran % (36.0-66.0) % Lymphocytes % (24.0-44.0) % Monocytes % (0.0-12.0) % Eosinophils % (0.00-5.0) % Basophils % (0.0-0.4) % Basophils # (0-0.4) Sodium 143 (136-145) mEq/L Potassium 3.9 (3.5-5.1) mEq/L Chloride 105 (98-107) mEq/L Carbon Dioxide 28.4 (21-32) mEq/L Anion Gap 13.4 (5-15) MEQ/L BUN 4 L (9-20) mg/dL Creatinine 0.66 (0.55-1.30) mg/dl Estimated GFR > 60 ML/MIN Glucose 94 (70-110) MG/DL Calcium 9.5 (8.5-10.1) mg/dL Total Bilirubin 0.30 (0.2-1.0) mg/dL AST 31 (15-37) U/L ALT 22 (12-78) U/L Alkaline Phosphatase 81 (46-116) U/L Serum Total Protein 7.9 (6.4-8.2) gm/dL Albumin 3.8 (3.4-5.0) g/dL Amylase 42 (25-115) U/L Lipase 146 (73-393) U/L Serum , Qual NEGATIVE (Negative) Ur Collection Type CLEAN CATCH Urine Color YELLOW (YELLOW) Urine Appearance CLEAR (CLEAR) Urine pH 5.0 (5-6) Ur Specific [place] 1.010 (1.005-1.025) Urine Protein NEGATIVE (Negative) Urine Ketones NEGATIVE (NEGATIVE) Urine Blood NEGATIVE (0-5) Julius/ul Urine Nitrite NEGATIVE (NEGATIVE) Urine Bilirubin NEGATIVE (NEGATIVE) Urine Urobilinogen NORMAL (0-1) mg/dL Ur Leukocyte Esterase TRACE (NEGATIVE) Urine Microscopic RBC 0-2 (0-2) /HPF Urine Microscopic WBC 2-5 (0-5) /HPF Ur Epithelial Cells FEW (FEW) /HPF Urine Bacteria FEW (NEGATIVE) /HPF Urine Mucus SLIGHT (NEGATIVE) /HPF Urine Culture Reflexed NO (NO) Urine Glucose NEGATIVE (NEGATIVE) mg/dL Specimen Received 03/21/17 1240 03/21/17 Range/Units 11:00 WBC 7.0 (4.0-10.5) K/mm3 RBC 4.34 (4.1-5.4) M/mm3 Hgb 13.2 (12.0-16.0) gm/dl Hct 41.3 (35-47) % MCV 95.2 (78-100) fl MCH 30.4 (26-32) pg MCHC 32.0 (32-36) g/dl RDW 13.8 (11.5-14.0) % Plt Count 295 (150-450) K/mm3 MPV 10.1 H (6-9.5) fl Gran % 68.3 H (36.0-66.0) % Lymphocytes % 24.4 (24.0-44.0) % Monocytes % 6.3 (0.0-12.0) % Eosinophils % 0.9 (0.00-5.0) % Basophils % 0.1 (0.0-0.4) % Basophils # 0.01 (0-0.4) Sodium (136-145) mEq/L Potassium (3.5-5.1) mEq/L Chloride (98-107) mEq/L Carbon Dioxide (21-32) mEq/L Anion Gap (5-15) MEQ/L BUN (9-20) mg/dL Creatinine (0.55-1.30) mg/dl Estimated GFR ML/MIN Glucose (70-110) MG/DL Calcium (8.5-10.1) mg/dL Total Bilirubin (0.2-1.0) mg/dL AST (15-37) U/L ALT (12-78) U/L Alkaline Phosphatase (46-116) U/L Serum Total Protein (6.4-8.2) gm/dL Albumin (3.4-5.0) g/dL Amylase (25-115) U/L Lipase (73-393) U/L Serum , Qual (Negative) Ur Collection Type Urine Color (YELLOW) Urine Appearance (CLEAR) Urine pH (5-6) Ur Specific [place] (1.005-1.025) Urine Protein (Negative) Urine Ketones (NEGATIVE) Urine Blood (0-5) Julius/ul Urine Nitrite (NEGATIVE) Urine Bilirubin (NEGATIVE) Urine Urobilinogen (0-1) mg/dL Ur Leukocyte Esterase (NEGATIVE) Urine Microscopic RBC (0-2) /HPF Urine Microscopic WBC (0-5) /HPF Ur Epithelial Cells (FEW) /HPF Urine Bacteria (NEGATIVE) /HPF Urine Mucus (NEGATIVE) /HPF Urine Culture Reflexed (NO) Urine Glucose (NEGATIVE) mg/dL Specimen Received - Progress Progress: improved Progress Note: 03/21/17 12:10 51-year-old white female arrives with complaint of right upper quadrant abdominal pain vomiting diarrhea. Patient's labs this so far essentially negative awaiting urine. Patient does have a history of intussusception about 10 years ago. Patient is improved was still having pain in her right upper quadrant after receiving IV normal saline Phenergan and morphine. Will give additional [address] of morphine obtain CT of the abdomen and pelvis. 03/21/17 13:18 Patient's labs essentially normal. Vitals are normal. Patient has received normal saline morphine Phenergan. CT is normal with the exception of a stable hepatic hemangioma and right renal cyst rest of the abdomen and pelvis are unremarkable. I had planned on obtaining occult stool however patient does not want rectal examination. Will plan to discharge patient. Will write for a prescription for [place] small amount of Phenergan. Patient return home plenty of fluids clear fluids only 24-48 hours of abdominal pain nausea or vomiting. Follow-up with her family doctor . Return for acute distress or for severe symptoms. 03/21/17 13:24 I have written for [place] for the patient. She states she has not been prescribed recent narcotics from her family doctor. She states she does not receive regular prescription of narcotics from her family doctor. She states she does not have a history of problems with narcotics. - Departure Time of Disposition: 13:19 Departure Disposition: Home Clinical Impression: Abdominal pain Qualifiers: Abdominal location: right upper quadrant Qualified Code(s): R10.11 - Right upper quadrant pain Vomiting Qualifiers: Vomiting type: unspecified Vomiting Intractability: non-intractable Nausea presence: with nausea Qualified Code(s): R11.2 - Nausea with vomiting, unspecified Condition: Fair Critical Care Time: No Referrals: FROILAN SANDOVAL [Primary Care Provider] - Instructions: Acute Abdomen (Belly Pain), Adult (DC) Additional Instructions: Return home. Plenty of fluids, clear fluids only 24-48 hours if abdominal pain. [place] 5/325 #12 one orally every 4-6 hours as needed for pain. Phenergan 25 mg one orally every 4-6 hours as needed for nausea or vomiting. Follow-up with your family doctor. Return for acute distress or for severe symptoms. Prescriptions: Hydrocodone/Acetaminophen [[place] 5-325 Tablet] 1 tab PO Q4-6HPRN PRN #12 tablet MDD 6 tablets PRN Reason: pain Promethazine HCl 25 mg [Phenergan 25 mg] 25 mg PO Q4-6HPRN PRN #12 tablet PRN Reason: nausea and vomiting
[2017-03-21] MEDS ORDERED: Phenergan 25 MG INJ IV ONE (11:24)
[2017-03-21] MEDS ORDERED: Sodium Chloride 0.9% 1000 ML 1,000 ML ONE (11:35)
[2017-03-21] MEDS ORDERED: MORPHINE SULFATE 4 MG INJ ONE ×2 (11:35→12:13)
[2017-03-21] MEDS ORDERED: Phenergan 25 MG INJ ONE (11:35)
[2017-03-21 11:39] LABS: BASOPHIL % 0.1 % (0.0-0.4); Basophil (Absolute #) 0.01 (0-0.4); Eosinophil % 0.9 % (0.00-5.0); Eosinophil (Absolute #) 0.06 (0-0.5); Granulocyte Absolute (ANC) 4.76 (1.4-6.9); Granulocytes % 68.3 % (36.0-66.0); Hematocrit 41.3 % (35-47); Hemoglobin 13.2 gm/dl (12.0-16.0); Lymphocytes % 24.4 % (24.0-44.0); Mean Cell Volume 95.2 fl (78-100); Mean Corpuscular Hemoglobin 30.4 pg (26-32); Mean Platelet Volume 10.1 fl (6-9.5); Monocyte (Absolute #) 0.44 (0.0-1.3); Monocytes % 6.3 % (0.0-12.0); Platelet Count 295 K/mm3 (150-450); Red Blood Count 4.34 M/mm3 (4.1-5.4); Red Cell Distribution Width 13.8 % (11.5-14.0)
[2017-03-21 11:57] LABS: ALBUMIN 3.8 g/dL (3.4-5.0); ALKALINE PHOSPHATASE 81 U/L (46-116); AMYLASE 42 U/L (25-115); ANION GAP 13.4 MEQ/L (5-15); BLOOD UREA NITROGEN 4 mg/dL (9-20); CHLORIDE 105 mEq/L (98-107); Calcium 9.5 mg/dL (8.5-10.1); Carbon Dioxide 28.4 mEq/L (21-32); Creatinine 1 0.66 mg/dl (0.55-1.30); EST GLOMERULAR FILTRATION RATE > 60 ML/MIN; Glucose 94 MG/DL (70-110); LIPASE 146 U/L (73-393); Potassium 3.9 mEq/L (3.5-5.1); SGOT/AST 31 U/L (15-37); SGPT/ALT 22 U/L (12-78); SODIUM 143 mEq/L (136-145); Total Protein 7.9 gm/dL (6.4-8.2)
[2017-03-21 12:52] LABS: Appearance CLEAR (CLEAR); Bilirubin NEGATIVE (NEGATIVE); Blood NEGATIVE Ery/ul (0-5); Glucose NEGATIVE (NEGATIVE); Ketones NEGATIVE (NEGATIVE); Leukocyte Esterase TRACE (NEGATIVE); Nitrite NEGATIVE (NEGATIVE); Protein,Urine Dip NEGATIVE (Negative); Urobilinogen NORMAL mg/dL (0-1)
[2017-03-21 12:53] LABS: Bacteria FEW /HPF (NEGATIVE); Epithelial Cells FEW /HPF (FEW); Mucus SLIGHT /HPF (NEGATIVE)
--- NOTE | 2017-03-21 13:10 | XRAY ---
Indication: Lower chest/upper abdominal pain. Vomiting blood. Multiple contiguous axial images obtained through the abdomen and pelvis using 80 cc Isovue 370 contrast only. Comparison: March 17, 2016. Lung bases again demonstrates bibasilar dependent atelectasis. No infiltrate or effusion. Heart is not enlarged. Noncontrasted stomach and bowel loops appear nonobstructed. Again previous appendectomy. Stable hepatic hemangioma and tiny right mid renal cortical cyst. Remaining liver, gallbladder, pancreas, spleen, adrenal glands, kidneys, ureters, bladder, and uterus appear unremarkable. There remains minimal aortoiliac calcifications. No AAA or pathologic retroperitoneal lymphadenopathy. Osseous structures intact. Impression: 1. Stable hepatic hemangioma and right renal cyst. 2. No new or acute intra-abdominal/pelvic abnormalities. CT DI 21.48
[2017-03-21 13:37] VITALS: BP 138/88; PULSE 76; O2SAT 98
== END 2017-03-21 13:36 | disposition home or self-care (01) ==
LOC: ED 10:45
DX: R11.2 Nausea with vomiting, unspecified (principal); M06.9 Rheumatoid arthritis, unspecified; F32.9 Major depressive disorder, single episode, unspecified; Z87.891 Personal history of nicotine dependence
CPT/HCPCS: 36000; 36415; 74177; 80053; 81000; 82150; 83690; 84703; 85025; 96360; 96374; 96375; 99284; J2270; J2550